=== PATIENT | female | born 2000 | race Caucasian/White ===

== ENCOUNTER 2023-10-10 23:27 | Emergency (ER) | payer MEDICAID ==
[~2023-10-10] VITALS: Ht 147.3 cm; Wt 82.1 kg
[2023-10-11 00:10] VITALS: BP_SYST 123; PULSE 69; RESP 16; TEMP 97.8; O2SAT 97
[2023-10-11 00:16] LABS: BILIRUBIN,URINE NEGATIVE (NEGATIVE); BLOOD, URINE NEGATIVE (NEGATIVE); CLARITY/URINE CLEAR (CLEAR); COLOR,URINE YELLOW (YELLOW); GLUCOSE,URINE NEGATIVE (NEGATIVE); KETONES,URINE NEGATIVE (NEGATIVE); LEUKOCYTE ESTERASE ,URINE NEGATIVE (NEGATIVE); NITRITE, URINE NEGATIVE (NEGATIVE); PH,URINE 6.5 (5.0-8.0); PROTEIN URINE TRACE (NEGATIVE); UROBILINOGEN,URINE 0.2 (0.2-1.0)
[2023-10-11] MEDS: NACL 0.9% 1,000 ML IV ONE (00:22)
[2023-10-11] MEDS: ONDANSETRON HCL 4 MG/2 ML VIAL IVP ONE ×2 (00:25→02:39)
[2023-10-11] MEDS: MORPHINE 2 MG/ML INJ. SYRINGE IVP ONE (00:31)
[2023-10-11 00:38] LABS: BASOPHILS # (AUTO) 0.2 K/uL (0.0-0.2); BASOPHILS % (AUTO) 1.5 % (0.0-2.0); EOSINOPHILS # (AUTO) 0.1 K/uL (0.0-0.4); EOSINOPHILS % (AUTO) 0.7 % (0.0-4.0); LYMPHOCYTES # (AUTO) 1.6 K/uL (1.0-5.5); LYMPHOCYTES % (AUTO) 12.1 % (20.5-51.5); MEAN CORPUSCULAR HEMOGLOBIN 26 pg (27-31); MEAN CORPUSCULAR HGB CONC 33 % (32-36); MEAN CORPUSCULAR VOLUME 78 fL (79.0-98.0); MONOCYTES # (AUTO) 0.5 K/uL (0.0-1.0); MONOCYTES % (AUTO) 3.6 % (1.7-9.3); NEUTROPHILS % (AUTO) 82.1 % (40.0-70.0); PLATELET COUNT (AUTO) 458 K/uL (130-430); RED BLOOD CELL COUNT(AUTO) 4.61 MIL/uL (4.2-6.2); RED CELL DISTRIBUTION WIDTH 15.5 % (9.0-15.0); WHITE BLOOD COUNT (AUTO) 13.4 K/uL (4.8-10.8)
[2023-10-11 00:49] LABS: ALANINE AMINOTRANSFERASE 88 U/L (12-78); ALBUMIN 3.7 g/dL (3.4-4.8); ANION GAP 13 (5-15); ASPARTATE AMINOTRANSFERASE 70 U/L (10-37); BILIRUBIN,DIRECT < 0.1 mg/dL (0.0-0.3); CALCIUM 8.9 mg/dL (8.4-11.0); CARBON DIOXIDE 25 mmol/L (23-29); CHLORIDE 100 mmol/L (98-107); GFR AFRICAN AMERICAN 195 mL/min (>90); GLUCOSE 120 mg/dL (74-106); LIPASE 36 U/L (16-77); POTASSIUM 5.1 mmol/L (3.5-5.1); SODIUM SERUM 138 mmol/L (136-145); TOTAL BILIRUBIN 0.5 mg/dL (0.0-1.0); TOTAL PROTEIN, SERUM 8.9 g/dL (6.4-8.3); UREA NITROGEN, BLOOD 8 mg/dL (8-21)
[2023-10-11 00:50] LABS: GFR NON AFRICAN-AMERICAN 161 mL/min (>90)
[2023-10-11 01:01] LABS: BACTERIA,URINE RARE /HPF (None Seen)
[2023-10-11] MEDS ORDERED: TRAM50TA2 PO (01:58)
[2023-10-11] MEDS ORDERED: OMEP40CA20 PO (01:58)
[2023-10-11] MEDS ORDERED: ONDA-8 TL (01:58)
[2023-10-11] MEDS: MAG HYDROX/AL HYDROX/SIMETH 30 ML, DICYCLOMINE HCL 20 MG, LIDOCAINE VISCOUS 2% 15ML (PO... PO ONE (02:20)
[2023-10-11] MEDS ORDERED: AMOX-423 PO (02:36)
[2023-10-11 03:15] VITALS: BP_SYST 102; PULSE 77; RESP 20; TEMP 97.8; O2SAT 96
== END 2023-10-11 03:15 | disposition home or self-care (01) ==
LOC: SED 23:27
DX: K80.20 Calculus of gallbladder without cholecystitis without obstruction (principal); R10.13 Epigastric pain; R11.0 Nausea
CPT/HCPCS: 99285; 80076; 80048; 81000; 81001; 83690; 85025; 36415; 81025; 96374; 76700; 96375; 96361; 81015; J2405; J2270; J7030; 96376; J2001